=== PATIENT | male | born 1995 | race American Indian/Alaskan Native ===

== ENCOUNTER 2021-06-01 09:27 | Emergency (ER) | payer SELFPAY ==
[2021-06-01] MEDS ORDERED: ACETAMINOPHEN 325 MG TAB PO ONE (11:31)
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
[2021-06-01 12:35] VITALS: BP 126/64
== END 2021-06-01 12:35 | disposition home or self-care (01) ==
LOC: ED 09:27
DX: R07.9 Chest pain, unspecified (principal); M25.512 Pain in left shoulder; V89.2XXA Person injured in unspecified motor-vehicle accident, traffic, initial encounter; Y93.89 Activity, other specified; Y92.89 Other specified places as the place of occurrence of the external cause; Y99.8 Other external cause status
CPT/HCPCS: 71046; 99283